=== PATIENT | male | born 1945 ===

== ENCOUNTER → 2016-06-15 | Outpatient (CLI) | payer MEDICARE, BC ==
[~2016-06-15] MED LIST: ALLEGRA180 MG PO; ATIVAN2 MG PO; COLACE100 MG PO; CPAP INH; FISH OIL1000 MG PO; FOLIC ACID 40400 MCG PO; LUMIGAN 0.01%2.5 ML OPHTH; MIRALAX PO527 GM/BOT PO; MOBIC7.5 MG PO; NORCO 5-325 MG1 TAB PO; OCEAN NASAL) (A44 ML NOSE; PRILOSEC20 MG PO; TYLENOL EXTRA500 MG PO; ULTRAM50 MG PO; VALIUM5 MG PO; VITAMIN B-121000 MCG PO; VITAMIN D-32000 UNI1 PO; XARELTO10 MG PO; ZANTAC (NON-FO150 MG PO
== END | disposition disaster alternative care site (69) ==
LOC: GRAD 07:12
DX: R20.2 Paresthesia of skin (principal); M48.02 Spinal stenosis, cervical region; M47.812 Spondylosis without myelopathy or radiculopathy, cervical region; R20.0 Anesthesia of skin